=== PATIENT | male | born 1970 | race Caucasian/White ===

== ENCOUNTER 2018-12-25 18:08 | Emergency (ER) | payer OTHER ==
[~2018-12-25] VITALS: Ht 188 cm; Wt 91.6 kg
[2018-12-25 18:12] VITALS: BP 142/93
[2018-12-25] MEDS ORDERED: ASPIRIN 81 MG TAB.CHEW PO ONE (18:35)
[2018-12-25] MEDS ORDERED: ACETAMINOPHEN 325 MG TAB PO ONE (18:35)
[2018-12-25 19:15] LABS: BASOPHILS % (AUTO) 0.6 % (0.0-2.0); EOSINOPHILS # (AUTO) 0.2 K/uL (0-0.4); EOSINOPHILS % (AUTO) 3.4 % (0.0-4.0); HEMATOCRIT 51.3 % (36-52); HEMOGLOBIN 17.3 g/dL (12.0-18.0); LYMPHOCYTES # (AUTO) 1.6 K/uL (2.0-11.5); LYMPHOCYTES % (AUTO) 26.1 % (20.5-51.1); MEAN CORPUSCULAR HEMOGLOBIN 30 pg (27-31); MEAN CORPUSCULAR HGB CONC 34 g/dL (33-37); MEAN CORPUSCULAR VOLUME 89.4 fL (80-94); MONOCYTES # (AUTO) 0.6 K/uL (0.8-1.0); MONOCYTES % (AUTO) 9.5 % (1.7-9.3); NEUTROPHILS # (AUTO) 3.6 K/uL (1.8-7.7); NEUTROPHILS % (AUTO) 60.4 % (42.2-75.2); PLATELET COUNT (AUTO) 224 K/uL (140-450); RED BLOOD CELL COUNT(AUTO) 5.74 MIL/uL (4.20-6.10)
[2018-12-25 19:24] LABS: CARBON DIOXIDE 30.2 mmol/L (21-32); POTASSIUM 4.2 mmol/L (3.5-5.1)
[2018-12-25 21:00] VITALS: BP 135/83
== END 2018-12-25 21:00 | disposition home or self-care (01) ==
LOC: MED 18:08
DX: R07.89 Other chest pain (principal); M79.18 Myalgia, other site
CPT/HCPCS: 36415; 71045; 80048; 84484; 85025; 93005; 99284; Q0092

== ENCOUNTER 2019-01-22 22:55 | Emergency (ER) | payer OTHER ==
[~2019-01-22] VITALS: Ht 182.9 cm; Wt 90.7 kg
[2019-01-22 23:02] VITALS: BP 150/95
--- NOTE | 2019-01-22 23:06 | NUR ---
pt ambulated to er bed 3
[2019-01-22] MEDS ORDERED: BACITRACIN OINT 500 UNITS/GM PKT TP ONE (23:10)
[2019-01-22] MEDS ORDERED: LIDOCAINE MPF 1% 10 MG/ML VIAL INJ ONE (23:10)
--- NOTE | 2019-01-22 23:20 | NUR ---
PT ARRIVED TO ED C/O RIGHT LAC ON PALM X 1 1/2 HR AGO. CMS INTACT. BLEEDING, LAC, AND SWELLING NOTED ON RIGHT PALM. RATES PAIN 6/10 AND DESCRIBES IT PULSATING. PT STATES HE CUT HIS PALM WITH A SEATBELT CUTTER OF MULTI TOOL. VSS. RAJPUT.
--- NOTE | 2019-01-22 23:25 | NUR ---
PT WOUND SOAKED WITH MIXTURE OF NORMAL SALINE AND BETADINE THEN DRIED
--- NOTE | 2019-01-22 23:30 | NUR ---
DR. BOYER BEDSIDE EVALUATING PT
--- NOTE | 2019-01-22 23:37 | NUR ---
PULLED LIDOCAINE OUT FOR MD FOR BEDSIDE PROCEDURE. MD FUNES ADMIN MED AT THIS TIME FOR PROCEDURE.
--- NOTE | 2019-01-22 23:52 | NUR ---
PT WOUND ON R HAND COVERED WITH NON ADHERENT DRESSING AND WRAPPED WITH ROLLER GAUZE AFTER BACITRACIN APPLIED.
[2019-01-22 23:59] VITALS: BP 150/95
== END 2019-01-22 23:59 | disposition home or self-care (01) ==
LOC: MED 22:55
DX: S61.411A Laceration without foreign body of right hand, initial encounter (principal); W45.8XXA Other foreign body or object entering through skin, initial encounter; Y93.89 Activity, other specified; Y92.89 Other specified places as the place of occurrence of the external cause; Y99.8 Other external cause status
CPT/HCPCS: 12002; 90471; 90715; 99283; J2001